=== PATIENT | female | born 1960 | race African-American/Black ===

== ENCOUNTER 2019-02-27 09:15 | Day surgery (SDC) | payer OTHER ==
[2019-02-26 13:28] VITALS: BMI 40.9
[2019-02-27 09:35] VITALS: TEMP 97.7
[2019-02-27] MEDS ORDERED: PROPOFOL 20 ML ONE ×2 (09:35)
[2019-02-27 10:55] VITALS: BP 135/80; PULSE 87
--- NOTE | 2019-03-03 15:03 | PATH ---
Surgical Pathology Report Patient Name: MARLI PAGE [facility]. Rec. #: [id number] /Age/Gender: 1960 (Age: 58) / F Account: [id number] Location: [facility] Taken: 02/27/2019 Received: 02/27/2019 Reported: 03/03/2019 Physicians: Taty Good M.D. Specimen(s) Received A: SECOND PORTION DUODENUM B: ANTRUM C: GE JUNCTION Clinical History Epigastric pain Postoperative diagnosis: Gastritis Final Diagnosis A. DUODENUM, SECOND PART, BIOPSY: DUODENAL MUCOSA WITH NO PATHOLOGIC CHANGES. NO HISTOLOGIC EVIDENCE OF GLUTEN SENSITIVE ENTEROPATHY (CELIAC SPRUE) IDENTIFIED. B. STOMACH, ANTRUM, BIOPSY: MILD CHRONIC GASTRITIS. IMMUNOSTAIN FOR H. PYLORI IS NEGATIVE. C. GE JUNCTION, BIOPSY: GASTRIC TYPE MUCOSA WITH NO PATHOLOGIC CHANGES. NO INTESTINAL METAPLASIA IDENTIFIED (NO BOLANOS'S IDENTIFIED). Electronically Signed Myke Feliciano M.D. Gross Description A. Received in formalin, labeled "biopsy second portion of duodenum" is a alvarenga, irregular portion of soft tissue measuring 0.5 cm. in greatest dimension. The specimen is submitted in toto in one cassette. B. Received in formalin, labeled "biopsy gastric antrum" is a alvarenga, irregular portion of soft tissue measuring 0.3 cm. in greatest dimension. The specimen is submitted in toto in one cassette. C. Received in formalin, labeled "biopsy GE junction" is a alvarenga, irregular portion of soft tissue measuring 0.4 cm. in greatest dimension. The specimen is submitted in toto in one cassette. 03/02/2019 [place]03/02/2019
== END 2019-02-27 11:00 | disposition home or self-care (01) ==
LOC: FASU-ENDO 09:15
PROVIDERS: ATTEND Internal Medicine Gastroenterology
PROC: 0DB68ZX Excision of Stomach, Via Natural or Artificial Opening Endoscopic, Diagnostic (ICD-10-PCS; 2019-02-27)
PROC: 0DB48ZX Excision of Esophagogastric Junction, Via Natural or Artificial Opening Endoscopic, Diagnostic (ICD-10-PCS; 2019-02-27)
PROC: 0DB98ZX Excision of Duodenum, Via Natural or Artificial Opening Endoscopic, Diagnostic (ICD-10-PCS; principal; 2019-02-27 10:06)
DX: K29.50 Unspecified chronic gastritis without bleeding (principal); R10.13 Epigastric pain
CPT/HCPCS: 82962; 88305-TC; 88342-TC

== ENCOUNTER 2019-10-02 07:50 | Day surgery (SDC) | payer OTHER ==
[2019-09-30 15:52] VITALS: BMI 40.7
[2019-10-02] MEDS ORDERED: PROPOFOL 20 ML ONE ×3 (08:55)
[2019-10-02] MEDS ORDERED: LIDOCAINE HCL/PF 2% SDV 5ML VIAL ONE (08:55)
[2019-10-02 10:22] VITALS: BP 112/71; PULSE 87; TEMP 98
--- NOTE | 2019-10-05 17:33 | PATH ---
Surgical Pathology Report Patient Name: MARLI PAGE [facility]. Rec. #: [id number] /Age/Gender: 1960 (Age: 59) / F Account: [id number] Location: [facility] Taken: 10/02/2019 Received: 10/02/2019 Reported: 10/05/2019 Physicians: Taty Good M.D. Specimen(s) Received RECTAL POLYPS Clinical History Abdominal pain, history of polyps Postoperative diagnosis: Same Final Diagnosis RECTAL POLYPS, BIOPSY: SESSILE SERRATED POLYPS. Electronically Signed Joana Castano M.D. Gross Description Received in formalin, labeled "rectal polyps" are 2 alvarenga, irregular portions of soft tissue measuring 0.3 and 0.4 cm. in greatest dimension. The specimens are submitted in toto in one cassette. 10/02/2019 [facility]10/02/2019
== END 2019-10-02 10:35 | disposition home or self-care (01) ==
LOC: FASU-ENDO 07:50
PROVIDERS: ATTEND Internal Medicine Gastroenterology
PROC: 0DBP8ZX Excision of Rectum, Via Natural or Artificial Opening Endoscopic, Diagnostic (ICD-10-PCS; principal; 2019-10-02 09:15)
DX: Z86.010 Personal history of colon polyps (principal); K64.1 Second degree hemorrhoids; K57.30 Diverticulosis of large intestine without perforation or abscess without bleeding; K62.1 Rectal polyp
CPT/HCPCS: 82962; 88305-TC

== ENCOUNTER 2023-11-01 08:25 | Day surgery (SDC) | payer OTHER ==
[2023-10-23 15:39] VITALS: BMI 40.9
[2023-11-01 08:46] VITALS: RESP 16
[2023-11-01 09:49] VITALS: TEMP 97.3
[2023-11-01 10:13] VITALS: BP 166/75; PULSE 84
== END 2023-11-01 10:22 | disposition home or self-care (01) ==
LOC: FASU-ENDO 08:25
PROVIDERS: ATTEND Internal Medicine Gastroenterology
PROC: 0DBN8ZX Excision of Sigmoid Colon, Via Natural or Artificial Opening Endoscopic, Diagnostic (ICD-10-PCS; principal; 2023-11-01 09:29)
DX: Z12.11 Encounter for screening for malignant neoplasm of colon (principal); K63.5 Polyp of colon; K57.30 Diverticulosis of large intestine without perforation or abscess without bleeding; K64.1 Second degree hemorrhoids; K64.8 Other hemorrhoids; R10.84 Generalized abdominal pain
CPT/HCPCS: 82962; 88305-TC